=== PATIENT | female | born 1955 | race Caucasian/White ===

== ENCOUNTER 2020-09-03 05:25 | Emergency (ER) | payer BC, MEDICAID ==
[~2020-09-03] VITALS: Ht 162.6 cm; Wt 71.4 kg
[2020-09-03 05:33] VITALS: BP 139/111
== END 2020-09-03 06:35 | disposition home or self-care (01) ==
LOC: ER 05:26
DX: S13.4XXA Sprain of ligaments of cervical spine, initial encounter (principal); R07.89 Other chest pain; M54.5 Low back pain; I10 Essential (primary) hypertension; E03.9 Hypothyroidism, unspecified; V89.2XXA Person injured in unspecified motor-vehicle accident, traffic, initial encounter; Y93.89 Activity, other specified; Y92.89 Other specified places as the place of occurrence of the external cause; Y99.8 Other external cause status
CPT/HCPCS: 71046; 99283

== ENCOUNTER 2021-05-12 14:40 | Emergency (ER) | payer BC, MEDICARE, MEDICAID ==
[~2021-05-12] VITALS: Ht 167.6 cm; Wt 90.0 kg
[2021-05-12 15:08] VITALS: BP 148/59
[2021-05-12] MEDS ORDERED: HYDR-3972 PO ×3 (15:29→17:07)
== END 2021-05-12 16:00 | disposition home or self-care (01) ==
LOC: ER 14:40
DX: S93.491A Sprain of other ligament of right ankle, initial encounter (principal); W10.8XXA Fall (on) (from) other stairs and steps, initial encounter; Y93.89 Activity, other specified; Y92.89 Other specified places as the place of occurrence of the external cause; Y99.8 Other external cause status
CPT/HCPCS: 73610; 99283; 99284